=== PATIENT | male | born 1960 | race Caucasian/White ===

== ENCOUNTER 2020-02-13 16:38 | Emergency (ER) | payer OTHER ==
[~2020-02-13] VITALS: Ht 185.4 cm; Wt 99.8 kg
[~2020-02-13 16:38] MED LIST: HUMIRA20 MG/0.4; OMEPRAZOLE20 M1 PO; PRINIVIL20 MG PO; ZOCOR40 MG PO
[2020-02-13] MEDS ORDERED: LIPITOR20 MG PO (16:52)
[2020-02-13] MEDS ORDERED: JARDIANCE10 MG PO (16:52)
[2020-02-13] MEDS ORDERED: XELJANZ5 MG PO (16:53)
[2020-02-13] MEDS ORDERED: KEFLEX500 M1 PO (18:37)
[2020-02-13 19:11] VITALS: BP 155/79
== END 2020-02-13 19:12 | disposition home or self-care (01) ==
LOC: M.ERS 16:38
DX: S61.412A Laceration without foreign body of left hand, initial encounter (principal); I10 Essential (primary) hypertension; E78.5 Hyperlipidemia, unspecified; E11.9 Type 2 diabetes mellitus without complications; W23.0XXA Caught, crushed, jammed, or pinched between moving objects, initial encounter; Y93.89 Activity, other specified; Y92.89 Other specified places as the place of occurrence of the external cause; Y99.8 Other external cause status